=== PATIENT | male | born 1955 | race Caucasian/White ===

== ENCOUNTER → 2021-01-05 | Day surgery (SDC) | payer MEDICARE, OTHER ==
[~2021-01-05] MED LIST: DEPAKOTE500 MG PO; FLONASE NASAL S16 GM NS; MOTRIN 800800 MG/TAB PO; RT ADVAIR 228 DISKUS IH; SINGULAIR 110 MG/TAB PO
== END ==
LOC: COL.CAR 12:00
DX: Z20.822 Contact with and (suspected) exposure to COVID-19 (principal); Z53.8 Procedure and treatment not carried out for other reasons